=== PATIENT | male | born 1975 | race Caucasian/White ===

== ENCOUNTER 2024-07-28 22:12 | Emergency (ER) | payer OTHER ==
[~2024-07-28] VITALS: Ht 180.3 cm; Wt 99.3 kg
[2024-07-28 22:15] VITALS: PULSE 80; RESP 18; TEMP 98.6
[2024-07-28] MEDS: KETOROLAC TROMETHAMINE 30 MG/ML VIAL IV STA (22:55)
[2024-07-28] MEDS: DIPHTH,PERTUSS(ACELL),TET VAC 0.5 ML SYRINGE IM ONE (22:56)
[2024-07-28] MEDS ORDERED: KETOROLAC TROMETHAMINE 30 MG/ML VIAL ONE (22:59)
[2024-07-28] MEDS ORDERED: TETANUS/DIPHTHERIA TOX ADULT 0.5 ML SYR ONE (22:59)
[2024-07-29] MEDS ORDERED: HYDROCODON-ACE1 EA12 PO (01:10)
[2024-07-29] MEDS: MUPIROCIN 2% OINT 22 GM TUBE TOP ONE (01:11)
[2024-07-29] MEDS ORDERED: CEPHALEXIN500 MG PO (01:12)
[2024-07-29] MEDS ORDERED: BACITRACIN ZINC 0.9GM TP ONE (01:14)
[2024-07-29] MEDS: CEPHALEXIN MONOHYDRATE 250 MG CAP PO ONE (02:07)
[2024-07-29] MEDS: BACITRACIN ZINC 15 GM OINT TOP SCH (02:08)
[2024-07-29] MEDS: HYDROCODONE/APAP 5MG-325MG TAB PO ONE (02:08)
[2024-07-29 02:35] VITALS: BP 129/62; PULSE 84; RESP 18; TEMP 98.6; O2SAT 98
== END 2024-07-29 02:00 | disposition home or self-care (01) ==
LOC: FSED 22:17
DX: S61.412A Laceration without foreign body of left hand, initial encounter (principal); W26.8XXA Contact with other sharp object(s), not elsewhere classified, initial encounter; Y92.89 Other specified places as the place of occurrence of the external cause
CPT/HCPCS: 12001; 73130; 90471; 90714; 99283; J1885

== ENCOUNTER 2024-09-23 11:00 | Emergency (ER) | payer OTHER ==
[~2024-09-23] VITALS: Ht 180.3 cm; Wt 110.8 kg
[~2024-09-23 11:00] MED LIST: CEPHALEXIN500 MG PO; HYDROCODON-ACE1 EA12 PO
[2024-09-23 12:00] VITALS: PULSE 69; RESP 18; TEMP 98.2
[2024-09-23 12:11] VITALS: BP 153/86; PULSE 69; RESP 18; TEMP 98.2; O2SAT 97
== END 2024-09-23 12:00 | disposition home or self-care (01) ==
LOC: FSED 11:04
DX: R05.9 Cough, unspecified (principal); J06.9 Acute upper respiratory infection, unspecified; R09.89 Other specified symptoms and signs involving the circulatory and respiratory systems; I10 Essential (primary) hypertension; Z11.52 Encounter for screening for COVID-19; Z87.442 Personal history of urinary calculi
CPT/HCPCS: 0223U; 83518; 87400; 87420; 99284

== ENCOUNTER 2025-01-13 09:10 | Emergency (ER) | payer OTHER ==
[~2025-01-13] VITALS: Ht 182.9 cm; Wt 113.0 kg
[2025-01-13 09:25] VITALS: TEMP 98.9
[2025-01-13] MEDS ORDERED: ONDANSETRON HCL INJ 2MG/ML 2ML 2 MG/ML VIAL ONE (09:57)
[2025-01-13] MEDS: ONDANSETRON HCL INJ 2MG/ML 2ML 2 MG/ML VIAL IV STA (10:06)
[2025-01-13] MEDS ORDERED: BENICAR20 MG PO (10:09)
[2025-01-13] MEDS ORDERED: HYDROCHLOROTH12.5 MG PO (10:09)
[2025-01-13] MEDS: ACETAMINOPHEN 325 MG TAB PO ONE (12:08)
[2025-01-13] MEDS: IBUPROFEN 400 MG TAB PO ONE (12:08)
[2025-01-13 12:38] VITALS: PULSE 78; RESP 18; O2SAT 96
== END 2025-01-13 12:55 | disposition home or self-care (01) ==
LOC: FSED 09:20
DX: R42 Dizziness and giddiness (principal); I10 Essential (primary) hypertension; R11.0 Nausea; R51.9 Headache, unspecified
CPT/HCPCS: 70450; 80053; 84484; 85025; 93005; 99284; J2405

== ENCOUNTER 2025-04-21 06:07 | Emergency (ER) | payer SELFPAY ==
[~2025-04-21] VITALS: Ht 182.9 cm; Wt 109.8 kg
[~2025-04-21 06:07] MED LIST changes: +BENICAR20 MG PO; +HYDROCHLOROTH12.5 MG PO
[2025-04-21] MEDS: KETOROLAC TROMETHAMINE 30 MG/ML VIAL IV STA (06:47)
[2025-04-21] MEDS: ONDANSETRON HCL INJ 2MG/ML 2ML 2 MG/ML VIAL IV STA ×2 (06:47→07:36)
[2025-04-21 07:26] VITALS: PULSE 71; RESP 18; TEMP 98.4; O2SAT 95
[2025-04-21] MEDS ORDERED: DICYCLOMINE HCL20 MG PO (07:34)
[2025-04-21] MEDS: Morphine 4mg INJECTION 4 MG/ML INJ IV ONE (07:36)
== END 2025-04-21 07:43 | disposition home or self-care (01) ==
LOC: FSED 06:39
DX: N20.0 Calculus of kidney (principal); R11.2 Nausea with vomiting, unspecified; I10 Essential (primary) hypertension; F17.210 Nicotine dependence, cigarettes, uncomplicated
CPT/HCPCS: 74176; 80048; 81003; 85025; 96374; 96375; 96376; 99284; J1885; J2270; J2405